=== PATIENT | female | born 1960 | race Caucasian/White ===

== ENCOUNTER → 2017-06-12 | Outpatient (CLI) | payer BC | LOC: FIMAGING 15:05 | DX: M79.652 Pain in left thigh (principal) ==

== ENCOUNTER → 2017-08-27 | Outpatient (CLI) | payer BC | LOC: FIMAGING 12:54 | PROVIDERS: ATTEND Obstetrics & Gynecology | DX: Z12.31 Encounter for screening mammogram for malignant neoplasm of breast (principal) ==

== ENCOUNTER 2018-09-27 02:37 | Emergency (ER) | payer BC | END 2018-09-27 05:19 | disposition home or self-care (01) ==